=== PATIENT | male | born 1955 | race Caucasian/White ===

== ENCOUNTER 2018-08-10 10:40 | Emergency (ER) | payer MEDICAID, OTHER ==
[2018-08-10 10:47] VITALS: BP 145/96
--- NOTE | 2018-08-10 11:19 | EDPHY ---
HPI/HX/ROS/PE/MDM Narrative: CHIEF COMPLAINT:Abdominal bulge HPI: The patient is a 63 year-old male who is visiting from [place]. Approximately two weeks ago, the patient was evaluated by two separate physicians related to development of a bulge in his LLQ, in the area of a hernia which he had repaired with mesh. The patient tells me he underwent a CTAP in [place] which showed this was a fluid collection and that the mesh was intact. The plan was to treat conservatively and consider drainage as an outpatient. The patient reports no change in bulge, including no increase in size, pain or redness, and denies fever, vomiting, abdominal pain or other symptoms. He is here essentially to confirm that he was given accurate information and to get checked out. PHYSICAL EXAM: Abdomen:A prominent bulge is noted in the LLQ. There is no ecchymosis and this area is non-tender. Mild erythema around umbillicus and inferior is noted which patient states is unchanged. Neuro: Oriented x3. Normal motor function. Normal sensory function. MDM: I had an extensive discussion with the patient who tells me he is here to get this checked out and to see if it can be drained. I explained that we would need to either obtain his medical records or repeat a CT here in the ED to determine the cause of the swelling and recommend treatment. The patient declines any testing. He understands that without testing I cannot rule out potentially life-threatening or serious illness. Given that patient states there has been no change in condition, I doubt that this represents incarcerated hernia or active infection. I strongly encouraged patient to return to the ED at any time for evaluation, and especially if his symptoms change or worsen in any way. General Time Seen by Provider: 08/10/18 10:51 Initial Vital Signs: Initial Vital Signs Temperature (C) 36.7 C 08/10/18 10:45 Heart Rate 74 08/10/18 10:45 Respiratory Rate 18 08/10/18 10:45 Blood Pressure 145/96 H 08/10/18 10:45 O2 Sat (%) 94 08/10/18 10:45 O2 Delivery Mode Room Air Allergies/Adverse Reactions: No Known Allergies Allergy (Unverified 08/10/18 10:45) Home Medications: Medication Instructions Recorded NK [No Known Home Meds] 08/10/18 Departure - Departure Disposition: Home, Routine, Self-Care Clinical Impression: Abdominal wall swelling Condition: Good Instructions: Additional Information Additional Instructions: You have refused further treatment here in the emergency department. Please return immediately for fever, worsening swelling, worsening pain, worsening redness or any other concerns. We would be happy to re-evaluate you at any time. We recommend trying to get a hold of your medical records in order to expedite further care if this is needed. Referrals: TORRI[facility] [Other] - As per Instructions
== END 2018-08-10 11:28 | disposition home or self-care (01) ==
DX: R19.04 Left lower quadrant abdominal swelling, mass and lump (principal)